=== PATIENT | male | born 1990 | race Caucasian/White ===

== ENCOUNTER 2017-04-19 14:17 | Emergency (ER) | payer OTHER ==
[~2017-04-19] VITALS: Ht 172.7 cm; Wt 133.0 kg
[2017-04-19 14:20] VITALS: Ht 172.7 cm; Wt 133.0 kg
[2017-04-19] MEDS ORDERED: ALBUTEROL 0.083% (NEB) 2.5 MG/3 ML AMP HHN STA (14:59)
[2017-04-19] MEDS ORDERED: ONDANSETRON (ODT) 4 MG TAB ODT STA (14:59)
[2017-04-19] MEDS ORDERED: predniSONE 20 MG TAB PO ONE (15:00)
[2017-04-19] MEDS ORDERED: ALBU8.5H3 INH (16:16)
[2017-04-19] MEDS ORDERED: IBUP-1542 PO (16:16)
[2017-04-19] MEDS ORDERED: PRED20TA PO (16:16)
[2017-04-19] MEDS ORDERED: AZIT250T94 PO (16:16)
--- NOTE | 2017-04-19 16:19 | ERD ---
ER Documentation Chief Complaint Chief Complaint fever , sore throat HPI This 26-year-old male presents with fever and cough for the last 3 days. He has productive mucus. Denies any history of asthma. Denies chest pain, vomiting, abdominal pain. ROS All systems reviewed and are negative except as per history of present illness. Medications Home Meds Active Scripts Ibuprofen* (Motrin*) 600 Mg Tab, 600 MG PO Q6, #15 TAB Prov:LIANA BLOOM MD 04/19/17 Albuterol Sulfate* (Proair HFA*) 8.5 Gm Hfa.aer.ad, 2 PUFF INH Q4, #1 INHALER Prov:LIANA BLOOM MD 04/19/17 Prednisone* (Prednisone*) 20 Mg Tab, 40 MG PO DAILY for 4 Days, TAB Start April 20, 2017 Prov:LIANA BLOOM MD 04/19/17 Azithromycin* (Zithromax*) 250 Mg Tablet, 250 MG PO .ZPACK DIRECTED, #6 TAB TAKE 500 MG (2 TABS) THE FIRST DAY THEN 250 MG (1 TAB) DAYS 2-5 Prov:LIANA BLOOM MD 04/19/17 PMhx/Soc Medical and Surgical Hx: pt denies Medical Hx, pt denies Surgical Hx Hx Alcohol Use: No Hx Substance Use: No Hx Tobacco Use: No Physical Exam Vitals Vital Signs Date Time Temp Pulse Resp B/P Pulse Ox O2 Delivery O2 Flow Rate FiO2 04/19/17 15:08 112 20 96 21 04/19/17 14:20 99.7 112 18 135/84 98 Physical Exam Const: [] Alert, [id number]. Head: Atraumatic Eyes: Normal Conjunctiva ENT: Normal External Ears, Nose and Mouth. TMs and oropharynx normal. Neck: Full range of motion..~ No meningismus. Resp: Clear to auscultation bilaterally. Forced wheeze without significant wheeze or rales at rest. No retractions. Cardio: Regular rate and rhythm, no murmurs Abd: Soft, non tender, non distended. Normal bowel sounds Skin: No petechiae or rashes Back: No midline or flank tenderness Ext: No cyanosis, or edema Neur: Awake and alert Psych: Normal Mood and Affect Results 24 hrs Current Medications Medications (Trade) Dose Ordered Sig/Adria Route PRN Reason Start Time Stop Time Status Last Admin Dose Admin Ondansetron HCl (Zofran Odt) 8 mg ONCE STAT ODT 04/19/17 14:59 04/19/17 15:00 DC 04/19/17 15:02 Prednisone (Prednisone) 60 mg ONCE ONCE PO 04/19/17 15:00 04/19/17 15:01 DC 04/19/17 15:02 Albuterol (Proventil 0.083% (Neb)) 5 mg ONCE STAT HHN 04/19/17 14:59 04/19/17 15:00 DC 04/19/17 15:07 Procedures/MDM Chest X-ray 1V Interpreted by me: Soft Tissue: No acute abnormalities Bones: No acute abnormalities Mediastinum/Cardiac Silhouette/Lungs: [No acute abnormalities] impression- normal 1 view chest x-ray Patient is given albuterol treatment and prednisone clear lungs on serial exam without evidence of hypoxemia or respiratory distress. Patient has signs of bronchitis wheezing. He may have a viral illness but given the productive cough treated with Zithromax, prednisone, ProAir air, primary care follow-up and return precautions. The patient was stable with no new complaints during the ER course. Clinically, there is no current evidence to suggest meningitis, sepsis, acute abdomen, pneumonia, acute coronary syndrome, pulmonary embolism, or any other emergent condition appearing to require further evaluation or hospitalization. The patient should certainly return for any new or worsening symptoms per the aftercare instructions. They should otherwise follow-up with her primary care doctor for reevaluation this week. Departure Diagnosis: Primary Impression: URI, acute Condition: Stable Patient Instructions: Bronchitis With Wheezing (Adult) Additional Instructions: X-ray normal. Recheck for new or worsening symptoms or primary care doctor. LIANA BLOOM MD Apr 19, 2017 16:19
--- NOTE | 2017-04-20 07:25 | RADRPT ---
PROCEDURE: XR Chest. CLINICAL INDICATION: Cough TECHNIQUE: Single frontal view of the chest was obtained COMPARISON: None FINDINGS: The heart and mediastinum are within normal limits. The lungs are clear. There is no pleural effusion or pneumothorax. RPTAT: AA IMPRESSION: No acute disease. .Ru Gamez MD, Date Time Electronically viewed and signed by .Ru Gamez MD, on 04/20/2017 07:25 .S/
== END 2017-04-19 16:26 | disposition home or self-care (01) ==
LOC: FTE 14:17
DX: J06.9 Acute upper respiratory infection, unspecified (principal); R05 Cough
CPT/HCPCS: 71010; 94664; 99284; J7512

== ENCOUNTER 2017-10-20 16:15 | Emergency (ER) | END 2017-10-20 19:07 | disposition home or self-care (01) ==

== ENCOUNTER 2018-03-09 16:42 | Emergency (ER) | END 2018-03-09 20:25 | disposition left against medical advice (07) ==